=== PATIENT | female | born 1955 | race Caucasian/White ===

== ENCOUNTER → 2020-10-07 | Outpatient (RCR) | payer OTHER | LOC: OT 09-13 10:03 | PROVIDERS: ATTEND Specialist | DX: M75.01 Adhesive capsulitis of right shoulder (principal) ==

== ENCOUNTER 2020-11-04 15:00 | Outpatient (RCR) | payer OTHER | END 2020-11-07 | LOC: OT 15:00 | PROVIDERS: ATTEND Specialist | DX: M75.01 Adhesive capsulitis of right shoulder (principal) ==

== ENCOUNTER 2020-11-18 10:00 | Outpatient (RCR) | payer OTHER | END 2020-12-05 | LOC: OT 10:00 | PROVIDERS: ATTEND Specialist | DX: M75.01 Adhesive capsulitis of right shoulder (principal) ==

== ENCOUNTER 2020-12-13 10:09 | Outpatient (RCR) | payer OTHER ==
[~2020-12-13 10:09] MED LIST: CALCIUM PO; MULTI-VITAMIN1 EACH PO; SYNTHROID112 MCG PO
== END 2021-01-05 ==
LOC: OT 10:09
PROVIDERS: ATTEND Specialist
DX: M75.01 Adhesive capsulitis of right shoulder (principal)

== ENCOUNTER → 2020-12-16 | Day surgery (SDC) | payer OTHER ==
[2020-12-13 15:11] LABS: BASOPHILS % 0.3 % (0.0-1.0); EOSINOPHILS % 0.2 % (0.0-6.0); HEMOGLOBIN 13.7 g/dL (12.0-16.0); LYMPHOCYTES # (AUTO) 1.7 (1.0-3.2); LYMPHOCYTES % 27.9 % (18.0-39.1); MEAN CORPUSCULAR HGB CONC 32.6 g/dL (31-35); MEAN CORPUSCULAR VOLUME 91.9 fL (81-99); MONOCYTES # (AUTO) 0.5 (0.2-0.8); MONOCYTES % 8.4 % (4.4-11.3); NEUTROPHILS # (AUTO) 3.8 (2.1-6.9); NEUTROPHILS % 62.9 % (38.7-80.0); PLATELET COUNT 232 x10e3/uL (140-360); RED BLOOD COUNT 4.57 x10e6/uL (3.6-5.1); RED CELL DISTRIBUTION WIDTH 13.4 % (11.7-14.4)
[~2020-12-16] MED LIST changes: +FENTANYL CITRATE/PF 100MCG/2 ML INJ ONE; +LIDOCAINE HCL 2% LOCAL INJ 5 ML SDV VIAL INJ ONE; +MIDAZOLAM HCL 2 MG/2 ML VIAL ONE; +PROPOFOL IV EMULSION 10 MG/ML 20 ML VIAL ONE
[2020-12-16 09:25] VITALS: BP 129/80
== END | disposition home or self-care (01) ==
LOC: OR 06:45
PROVIDERS: ATTEND Internal Medicine Gastroenterology
DX: Z12.11 Encounter for screening for malignant neoplasm of colon (principal); K64.8 Other hemorrhoids; R01.1 Cardiac murmur, unspecified; Z01.810 Encounter for preprocedural cardiovascular examination; Z01.812 Encounter for preprocedural laboratory examination; Z20.822 Contact with and (suspected) exposure to COVID-19; Z80.0 Family history of malignant neoplasm of digestive organs
CPT/HCPCS: 36415; 45378; 85025; 93005; J2001; J2250; J3010; U0002